=== PATIENT | female | born 1945 | race Caucasian/White ===

== ENCOUNTER 2017-06-21 20:17 | Inpatient (IN) | payer MEDICARE, BC ==
[~2017-06-21] VITALS: Ht 170.2 cm; Wt 108.9 kg
[2017-06-21] MEDS ORDERED: VERA180T7 PO (20:50)
[2017-06-21] MEDS ORDERED: CLON0.1T PO (20:50)
[2017-06-21] MEDS ORDERED: GABA300C PO (20:50)
[2017-06-21] MEDS ORDERED: CYAN10009 PO (20:50)
[2017-06-21] MEDS ORDERED: ASPI-966 PO (20:50)
[2017-06-21] MEDS ORDERED: ATOR40TA PO (20:50)
[2017-06-21] MEDS ORDERED: MAGN400O6 PO (20:50)
[2017-06-21] MEDS ORDERED: LOPE-156 PO (20:50)
[2017-06-21] MEDS ORDERED: META800T85 PO (20:50)
[2017-06-21] MEDS ORDERED: SUMA100T PO (20:50)
[2017-06-21] MEDS ORDERED: GABA-534 PO (20:50)
[2017-06-21] MEDS ORDERED: ACET-2154 PO (20:50)
[2017-06-21] MEDS ORDERED: DIPH25CA83 PO (20:50)
[2017-06-21] MEDS ORDERED: MAGN500C16 PO (20:50)
[2017-06-21] MEDS ORDERED: MAG-55 PO (20:50)
[2017-06-21] MEDS ORDERED: LEVO125T PO (20:50)
[2017-06-21] MEDS ORDERED: FURO-151 PO (20:50)
[2017-06-21] MEDS ORDERED: DEXT30SU17 PO (20:50)
[2017-06-21] MEDS ORDERED: PANT40TA4 PO (20:50)
[2017-06-21] MEDS ORDERED: FENO134C PO (20:50)
[2017-06-21] MEDS ORDERED: METO50TA16 PO (20:50)
[2017-06-21] MEDS ORDERED: IPRATROPIUM BROMIDE 0.5 MG/2.5 ML NEBU NEB ONE (21:15)
[2017-06-21] MEDS ORDERED: ALBUTEROL SULFATE 2.5 MG/3 ML NEBU NEB ONE (21:15)
[2017-06-21] MEDS ORDERED: methylPREDNISolone SOD SUCC 125 MG/2 ML VIAL IV ONE (21:15)
[2017-06-21] MEDS ORDERED: ALBUTEROL SULFATE 2.5 MG/3 ML NEBU ONE (21:28)
[2017-06-21] MEDS ORDERED: IPRATROPIUM BROMIDE 0.5 MG/2.5 ML NEBU ONE (21:29)
[2017-06-21] MEDS ORDERED: methylPREDNISolone SOD SUCC 125 MG/2 ML VIAL ONE (21:35)
[2017-06-21 22:18] LABS: CARBON DIOXIDE 23 mmol/L (21-32); CHLORIDE 98 mmol/L (98-107); CREATININE 1.4 mg/dL (0.6-1.3); GLUCOSE 114 mg/dL (74-106); POTASSIUM 4.2 mmol/L (3.5-5.1); UREA NITROGEN, BLOOD 29 mg/dL (7-18)
[2017-06-21 22:30] VITALS: BP 147/73
[2017-06-21 22:30] LABS: ALANINE AMINOTRANSFERASE 57 U/L (14-59); ALKALINE PHOSPHATASE 52 U/L (50-136); ASPARTATE AMINOTRANSFERASE 49 U/L (15-37); BILIRUBIN,DIRECT 0.1 mg/dL (0.0-0.2); BILIRUBIN,TOTAL 0.3 mg/dL (0.2-1.0); TOTAL PROTEIN, SERUM 7.3 g/dL (6.4-8.2)
[2017-06-21 22:31] LABS: BASOPHILS % (AUTO) 0.2 % (0.0-2.0); EOSINOPHILS % (AUTO) 1.1 % (0.0-7.0); HEMATOCRIT 35.7 % (37-47); HEMOGLOBIN 11.8 G/DL (12.0-16.0); LYMPHOCYTES # (AUTO) 0.8 K/UL (0.8-4.8); LYMPHOCYTES % (AUTO) 16.9 % (20.5-51.5); MEAN CORPUSCULAR HGB CONC 33 g/dL (32.0-37.0); MEAN CORPUSCULAR VOLUME 84.9 FL (81.0-99.0); MONOCYTES # (AUTO) 0.5 K/UL (0.1-1.30); MONOCYTES % (AUTO) 11.8 % (0.0-11.0); NEUTROPHILS # (AUTO) 3.2 K/UL (1.8-8.9); PLATELET COUNT (AUTO) 264 K/UL (150-450); RED BLOOD CELL COUNT(AUTO) 4.21 MIL/UL (4.2-5.4); WHITE BLOOD COUNT (AUTO) 4.5 K/UL (4.0-11.2)
[2017-06-22 00:30] VITALS: BP 129/77
[2017-06-22] MEDS ORDERED: TEMAZEPAM 15 MG CAPSULE PO SCH (01:15)
[2017-06-22] MEDS: LORAZEPAM 2 MG/1 ML VIAL IV PRN ×3 (01:19→16:49)
[2017-06-22] MEDS ORDERED: LORAZEPAM 2 MG/1 ML VIAL ONE (01:32)
[2017-06-22 04:00] VITALS: BP 119/72
[2017-06-22] MEDS ORDERED: SUMATRIPTAN SUCCINATE 50 MG TABLET PO PRN (07:45)
[2017-06-22] MEDS ORDERED: MAGNESIUM HYDROXIDE 30 ML LIQUID UDC PO PRN (07:45)
[2017-06-22] MEDS ORDERED: METAXALONE 800 MG TABLET PO SCH (07:45)
[2017-06-22] MEDS ORDERED: ACETAMINOPHEN 325 MG TABLET PO PRN (07:45)
[2017-06-22] MEDS ORDERED: MAG HYDROX/AL HYDROX/SIMETH 30 ML LIQUID UDC PO PRN (07:45)
[2017-06-22] MEDS ORDERED: CLONIDINE HCL 0.1 MG TABLET PO PRN (07:45)
[2017-06-22] MEDS ORDERED: Medication Not On Formulary EA (Diphenhydramine Hcl (Benadryl) 25 MG) PO SCH (07:45)
[2017-06-22] MEDS ORDERED: DEXTROMETHORPHAN PO SCH (07:45)
[2017-06-22] MEDS ORDERED: LOPERAMIDE HCL 2 MG CAPSULE PO SCH (07:45)
[2017-06-22] MEDS ORDERED: LOPERAMIDE HCL 2 MG CAPSULE PO PRN (08:00)
[2017-06-22] MEDS ORDERED: diphenhydrAMINE 25 MG CAP PO PRN (08:00)
[2017-06-22] MEDS: LEVOTHYROXINE SODIUM 125 MCG TABLET PO SCH (08:01)
[2017-06-22] MEDS: CYANOCOBALAMIN 1,000 MCG TABLET PO SCH (08:57)
[2017-06-22] MEDS: GABAPENTIN 300 MG CAPSULE PO SCH ×2 (08:57→20:18)
[2017-06-22] MEDS: METOPROLOL TARTRATE 50 MG TABLET PO SCH ×2 (08:58→20:18)
[2017-06-22] MEDS ORDERED: Medication Not On Formulary EA (Magnesium Oxide (Magnesium) 500 MG) PO SCH (09:00)
[2017-06-22] MEDS ORDERED: Medication Not On Formulary EA (Fenofibrate,Micronized (Fenofibrate) 134 MG) PO SCH (09:00)
[2017-06-22] MEDS: VERAPAMIL SR 180 MG TABLET.SA PO SCH (09:00)
[2017-06-22] MEDS: methylPREDNISolone SOD SUCC 40 MG/ML VIAL IV SCH ×3 (09:27→22:51)
[2017-06-22] MEDS: FENOFIBRATE NANOCRYSTALLIZED 145 MG TABLET PO SCH (09:27)
[2017-06-22] MEDS: GUAIFENESIN/DEXTROMETHORPHAN 5 ML UDC PO PRN ×4 (09:27→22:56)
[2017-06-22] MEDS ORDERED: LEVOFLOXACIN 500 MG/D5W 500 MG in PREMIXED 1 EACH IV SCH (10:00)
[2017-06-22 10:08] VITALS: BP 119/60
[2017-06-22] MEDS ORDERED: FUROSEMIDE 40 MG TABLET PO ONE (10:15)
[2017-06-22] MEDS: ASPIRIN/ACETAMINOPHEN/CAFFEINE TABLET PO PRN (10:16)
[2017-06-22] MEDS: IPRATROPIUM BROMIDE 0.5 MG/2.5 ML NEBU NEB PRN (11:46)
[2017-06-22] MEDS: ALBUTEROL SULFATE 1.25 MG/3 ML NEBU NEB PRN (11:46)
[2017-06-22] MEDS ORDERED: METAXALONE 800 MG TABLET PO PRN (15:15)
[2017-06-22 16:00] VITALS: BP 135/64
[2017-06-22] MEDS: HYDROCODONE/APAP 5-325MG TABLET PO PRN (17:53)
[2017-06-22 20:00] VITALS: BP 128/63
[2017-06-22] MEDS: PANTOPRAZOLE SODIUM 40 MG TABLET.DR PO SCH (20:17)
[2017-06-22] MEDS: ATORVASTATIN 40 MG TABLET PO SCH (20:17)
[2017-06-22] MEDS: MAGNESIUM OXIDE 400 MG TABLET PO SCH (20:17)
[2017-06-22] MEDS: TEMAZEPAM 7.5 MG CAPSULE PO PRN (22:51)
[2017-06-23] MEDS: TEMAZEPAM 7.5 MG CAPSULE PO PRN ×2 (01:30→22:42)
[2017-06-23] MEDS: ALBUTEROL SULFATE 1.25 MG/3 ML NEBU NEB PRN ×3 (01:37→23:26)
[2017-06-23] MEDS: IPRATROPIUM BROMIDE 0.5 MG/2.5 ML NEBU NEB PRN ×3 (01:37→23:26)
[2017-06-23] MEDS: methylPREDNISolone SOD SUCC 40 MG/ML VIAL IV SCH ×3 (05:54→21:29)
[2017-06-23] MEDS: GUAIFENESIN/DEXTROMETHORPHAN 5 ML UDC PO PRN (05:54)
[2017-06-23 06:00] VITALS: BP 149/60
[2017-06-23] MEDS: LEVOTHYROXINE SODIUM 125 MCG TABLET PO SCH (06:02)
[2017-06-23] MEDS ORDERED: METAXALONE 800 MG TABLET PO PRN (07:45)
[2017-06-23 07:55] LABS: CARBON DIOXIDE 24 mmol/L (21-32); CHLORIDE 99 mmol/L (98-107); CREATININE 1.7 mg/dL (0.6-1.3); GLUCOSE 128 mg/dL (74-106); POTASSIUM 5.4 mmol/L (3.5-5.1); UREA NITROGEN, BLOOD 43 mg/dL (7-18)
[2017-06-23] MEDS ORDERED: FUROSEMIDE 40 MG TABLET PO SCH (09:00)
[2017-06-23] MEDS: VERAPAMIL SR 180 MG TABLET.SA PO SCH (09:08)
[2017-06-23] MEDS: CYANOCOBALAMIN 1,000 MCG TABLET PO SCH (09:12)
[2017-06-23] MEDS: METOPROLOL TARTRATE 50 MG TABLET PO SCH ×2 (09:14→20:00)
[2017-06-23] MEDS: GABAPENTIN 300 MG CAPSULE PO SCH ×2 (09:14→20:00)
[2017-06-23] MEDS: FENOFIBRATE NANOCRYSTALLIZED 145 MG TABLET PO SCH (09:14)
[2017-06-23 09:31] LABS: BILIRUBIN,DIRECT 0.1 mg/dL (0.0-0.2); BILIRUBIN,TOTAL 0.4 mg/dL (0.2-1.0); TOTAL PROTEIN, SERUM 7.2 g/dL (6.4-8.2)
[2017-06-23 09:37] LABS: BASOPHILS % (AUTO) 0.1 % (0.0-2.0); HEMOGLOBIN 11.8 g/dL (10.9-14.3); LYMPHOCYTES # (AUTO) 0.9 K/uL (20.0-40.0); LYMPHOCYTES % (AUTO) 7.7 % (20.5-51.5); MEAN CORPUSCULAR HEMOGLOBIN 28.7 uug (24.7-32.8); MEAN CORPUSCULAR HGB CONC 34 g/dL (32.3-35.6); MEAN CORPUSCULAR VOLUME 85.2 fL (75.5-95.3); MONOCYTES # (AUTO) 0.6 K/uL (2.0-10.0); MONOCYTES % (AUTO) 5.7 % (0.0-11.0); NEUTROPHILS # (AUTO) 9.5 K/uL (1.8-8.9); NEUTROPHILS % (AUTO) 86.5 % (38.5-71.5); PLATELET COUNT (AUTO) 267 K/uL (179-408); RED BLOOD CELL COUNT(AUTO) 4.11 MIL/uL (3.63-4.92)
[2017-06-23 09:45] LABS: MAGNESIUM 2.1 mg/dL (1.8-2.4); PHOSPHOROUS 3.2 mg/dL (2.5-4.9)
[2017-06-23 11:20] VITALS: BP 113/48
[2017-06-23] MEDS: LORAZEPAM 2 MG/1 ML VIAL IV PRN (11:21)
[2017-06-23 15:57] VITALS: BP 102/55
[2017-06-23] MEDS: HYDROCODONE/APAP 5-325MG TABLET PO PRN (16:04)
[2017-06-23] MEDS ORDERED: LEVOFLOXACIN 750MG/D5W 750 MG in PREMIXED 1 EACH IV SCH (18:00)
[2017-06-23 20:00] VITALS: BP 155/75
[2017-06-23] MEDS: ATORVASTATIN 40 MG TABLET PO SCH (20:00)
[2017-06-23] MEDS: MAGNESIUM OXIDE 400 MG TABLET PO SCH (20:00)
[2017-06-23] MEDS: PANTOPRAZOLE SODIUM 40 MG TABLET.DR PO SCH (20:00)
[2017-06-24 01:40] VITALS: BP 125/64
[2017-06-24] MEDS: ASPIRIN/ACETAMINOPHEN/CAFFEINE TABLET PO PRN ×2 (01:45→09:46)
[2017-06-24] MEDS: methylPREDNISolone SOD SUCC 40 MG/ML VIAL IV SCH (06:00)
[2017-06-24] MEDS: LEVOTHYROXINE SODIUM 125 MCG TABLET PO SCH (06:00)
[2017-06-24 06:30] VITALS: BP 134/59
[2017-06-24 06:31] LABS: ALANINE AMINOTRANSFERASE 44 U/L (14-59); ALKALINE PHOSPHATASE 42 U/L (50-136); ASPARTATE AMINOTRANSFERASE 26 U/L (15-37); BILIRUBIN,TOTAL 0.2 mg/dL (0.2-1.0); CARBON DIOXIDE 24 mmol/L (21-32); CHLORIDE 99 mmol/L (98-107); CREATININE 1.8 mg/dL (0.6-1.3); GLUCOSE 127 mg/dL (74-106); MAGNESIUM 2.5 mg/dL (1.8-2.4); PHOSPHOROUS 3.8 mg/dL (2.5-4.9); POTASSIUM 5.3 mmol/L (3.5-5.1); TOTAL PROTEIN, SERUM 7.1 g/dL (6.4-8.2); UREA NITROGEN, BLOOD 55 mg/dL (7-18)
[2017-06-24 06:48] LABS: BASOPHILS % (AUTO) 0.1 % (0.0-2.0); HEMATOCRIT 34.6 % (31.2-41.9); HEMOGLOBIN 11.7 g/dL (10.9-14.3); LYMPHOCYTES # (AUTO) 1.2 K/uL (20.0-40.0); LYMPHOCYTES % (AUTO) 9.8 % (20.5-51.5); MEAN CORPUSCULAR HEMOGLOBIN 28.5 uug (24.7-32.8); MEAN CORPUSCULAR HGB CONC 34 g/dL (32.3-35.6); MEAN CORPUSCULAR VOLUME 84.5 fL (75.5-95.3); MONOCYTES # (AUTO) 0.6 K/uL (2.0-10.0); MONOCYTES % (AUTO) 5.2 % (0.0-11.0); NEUTROPHILS % (AUTO) 84.9 % (38.5-71.5); PLATELET COUNT (AUTO) 297 K/uL (179-408); WHITE BLOOD COUNT (AUTO) 11.8 K/uL (3.8-11.8)
[2017-06-24] MEDS ORDERED: TEMA7.5C PO (08:02)
[2017-06-24] MEDS ORDERED: FURO40TA5 PO (08:02)
[2017-06-24] MEDS: METOPROLOL TARTRATE 50 MG TABLET PO SCH (08:29)
[2017-06-24 08:30] VITALS: BP 140/75
[2017-06-24] MEDS: FENOFIBRATE NANOCRYSTALLIZED 145 MG TABLET PO SCH (08:30)
[2017-06-24] MEDS: GABAPENTIN 300 MG CAPSULE PO SCH (08:30)
[2017-06-24] MEDS: CYANOCOBALAMIN 1,000 MCG TABLET PO SCH (08:31)
[2017-06-24] MEDS: IPRATROPIUM BROMIDE 0.5 MG/2.5 ML NEBU NEB PRN (08:35)
[2017-06-24] MEDS: ALBUTEROL SULFATE 1.25 MG/3 ML NEBU NEB PRN (08:35)
[2017-06-24 08:55] VITALS: BP 140/75
[2017-06-24] MEDS: VERAPAMIL SR 180 MG TABLET.SA PO SCH (08:55)
[2017-06-24] MEDS ORDERED: FUROSEMIDE 40 MG TABLET PO SCH (09:00)
[2017-06-24] MEDS ORDERED: INFLUENZA VACCINE 2017-2018 0.5 ML DISP.SYRIN IM ONE (10:30)
[2017-06-25 06:06] LABS: HEPATITIS B SURFACE AB Non Reactive (.); HEPATITIS B SURFACE AG Negative (Negative)
== END 2017-06-24 11:30 | DRG 190 ==
LOC: ER 20:20 → TELE 23:15 → MED 06-22 13:25
PROVIDERS: ADMIT Internal Medicine; ATTEND Internal Medicine
DX: J44.1 Chronic obstructive pulmonary disease with (acute) exacerbation (principal); N17.0 Acute kidney failure with tubular necrosis; E03.9 Hypothyroidism, unspecified; I10 Essential (primary) hypertension; E78.5 Hyperlipidemia, unspecified; F41.9 Anxiety disorder, unspecified; K21.9 Gastro-esophageal reflux disease without esophagitis; Z79.899 Other long term (current) drug therapy; R79.89 Other specified abnormal findings of blood chemistry; Z22.322 Carrier or suspected carrier of Methicillin resistant Staphylococcus aureus
CPT/HCPCS: 36415; 70030-TC; 71010; 76700; 83605; 83735; 84100; 85025; 86706; 86803; 87040; 87340; 90686; 93005; 94640; 97116; 97530; A4663; J1956; J2060; J2920; J2930; J3590; J7040; J8499

== ENCOUNTER 2017-07-27 18:20 | Inpatient (IN) | payer MEDICARE, BC ==
[~2017-07-27] VITALS: Ht 172.7 cm; Wt 79.4 kg
[~2017-07-27 18:20] MED LIST: ACET-2154 PO; ASPI-966 PO; ATOR40TA PO; CLON0.1T PO; CYAN10009 PO; DEXT30SU17 PO; DIPH25CA83 PO; FENO134C PO; FURO-151 PO; FURO40TA5 PO; GABA-534 PO; GABA300C PO; LEVO125T PO; LOPE-156 PO; MAG-55 PO; MAGN400O6 PO; MAGN500C16 PO; META800T85 PO; METO50TA16 PO; PANT40TA4 PO; SUMA100T PO; TEMA7.5C PO; VERA180T7 PO
--- NOTE | 2017-07-27 18:30 | NUR ---
BIB [facility] WITH C/O SOB, THERE ARE NO ER BEDS AVAILABLE AT THIS TIME, PT IS IN HALLWAY WITH EMS.
--- NOTE | 2017-07-27 18:46 | NUR ---
Pt placed in [facility] in [facility], there are no ER beds available at this time.
[2017-07-27] MEDS ORDERED: IPRATROPIUM BROMIDE 0.5 MG/2.5 ML NEBU NEB ONE (19:00)
[2017-07-27] MEDS ORDERED: methylPREDNISolone SOD SUCC 125 MG/2 ML VIAL IV ONE (19:00)
[2017-07-27] MEDS ORDERED: ALBUTEROL SULFATE 2.5 MG/3 ML NEBU NEB ONE (19:00)
[2017-07-27 19:29] LABS: BASOPHILS % (AUTO) 0.3 % (0.0-2.0); EOSINOPHILS % (AUTO) 0.7 % (0.0-7.0); HEMOGLOBIN 10.3 g/dL (10.9-14.3); LYMPHOCYTES # (AUTO) 1.2 K/uL (20.0-40.0); LYMPHOCYTES % (AUTO) 26.9 % (20.5-51.5); MEAN CORPUSCULAR HEMOGLOBIN 28.8 uug (24.7-32.8); MEAN CORPUSCULAR HGB CONC 33 g/dL (32.3-35.6); MEAN CORPUSCULAR VOLUME 86.5 fL (75.5-95.3); MONOCYTES # (AUTO) 0.5 K/uL (2.0-10.0); MONOCYTES % (AUTO) 10.7 % (0.0-11.0); NEUTROPHILS # (AUTO) 2.8 K/uL (1.8-8.9); NEUTROPHILS % (AUTO) 61.4 % (38.5-71.5); PLATELET COUNT (AUTO) 280 K/uL (179-408); RED BLOOD CELL COUNT(AUTO) 3.58 MIL/uL (3.63-4.92); WHITE BLOOD COUNT (AUTO) 4.6 K/uL (3.8-11.8)
[2017-07-27 19:32] LABS: CARBON DIOXIDE 22 mmol/L (21-32); CHLORIDE 101 mmol/L (98-107); CREATININE 2.5 mg/dL (0.6-1.3); GLUCOSE 140 mg/dL (74-106); POTASSIUM 4.1 mmol/L (3.5-5.1); UREA NITROGEN, BLOOD 53 mg/dL (7-18)
[2017-07-27 19:44] LABS: ALANINE AMINOTRANSFERASE 34 U/L (14-59); ALKALINE PHOSPHATASE 36 U/L (50-136); ASPARTATE AMINOTRANSFERASE 22 U/L (15-37); BILIRUBIN,DIRECT 0.1 mg/dL (0.0-0.2); BILIRUBIN,TOTAL 0.3 mg/dL (0.2-1.0); TOTAL PROTEIN, SERUM 6.8 g/dL (6.4-8.2)
[2017-07-27 19:45] LABS: ABG BASE EXCESS -6.6 mmol/L; ABG HCO3 17.6 mmol/L; ABG PH 7.373 (7.350-7.450); ABG SITE RIGHT RADIAL; ABG TOTAL HEMOGLOBIN 10.3 G/dL (12.0-16.0); COHb 0.2 % (0.5-1.5); MetHb 0.3 % (0.0-1.5); O2Hb 94.3 % (94.0-97.0); VENT MODE Room Air
[2017-07-27] MEDS ORDERED: ALBUTEROL SULFATE 2.5 MG/3 ML NEBU ONE (19:45)
[2017-07-27] MEDS ORDERED: IPRATROPIUM BROMIDE 0.5 MG/2.5 ML NEBU ONE (19:46)
[2017-07-27] MEDS ORDERED: PIPERACILLIN/TAZO 0.75 G in IV DEXTROSE 5% 50 ML IV PRN (20:15)
[2017-07-27] MEDS ORDERED: LEVOFLOXACIN 250MG /D5W 250 MG in PREMIXED 1 EACH IV ONE (20:15)
[2017-07-27] MEDS ORDERED: MONT10TA22 PO (21:47)
[2017-07-27] MEDS ORDERED: ALBU8.5H8 INH (21:47)
[2017-07-27] MEDS ORDERED: DEXT30SU17 PO (21:47)
[2017-07-27] MEDS ORDERED: LORA10TA7 PO (21:47)
[2017-07-27] MEDS ORDERED: VALS160T2 PO (21:47)
[2017-07-27] MEDS ORDERED: MIRT30TA7 PO (21:47)
[2017-07-27] MEDS ORDERED: ALBU2.5V38 IH (21:47)
[2017-07-27] MEDS ORDERED: CHOL500050 PO (21:47)
[2017-07-27] MEDS ORDERED: ALBU8HFA4 IH (21:47)
[2017-07-27] MEDS ORDERED: OMEG1CAP PO (21:47)
[2017-07-27] MEDS ORDERED: FENO135C PO (21:47)
[2017-07-27] MEDS ORDERED: ASPI-966 PO (21:47)
[2017-07-27] MEDS ORDERED: SPIR25TA4 PO (21:47)
[2017-07-27] MEDS ORDERED: ALEN70TA3 PO (21:47)
[2017-07-27] MEDS ORDERED: LORA0.5T PO (21:47)
[2017-07-27] MEDS ORDERED: BENZ-13 PO (21:47)
[2017-07-27] MEDS ORDERED: UBID100C13 PO (21:47)
[2017-07-27] MEDS ORDERED: FLUT1DIS28 INH (21:47)
--- NOTE | 2017-07-27 22:25 | NUR ---
LABS DRAWN EARLIE, RESP TX GIVEN, PRESENTLY RECEIVING LEVAQUIN IVPB. PO2=97% ON RA, MONITOR SHOWS SINUS TACH AT 110.
[2017-07-27] MEDS ORDERED: LEVOFLOXACIN 250MG /D5W 50 ML IV ONE (22:29)
[2017-07-27] MEDS ORDERED: PIPERACILLIN/TAZOBACTAM/D5W 50 ML ONE (22:29)
[2017-07-27] MEDS ORDERED: LORAZEPAM 0.5 MG TABLET PO ONE (22:30)
[2017-07-27] MEDS ORDERED: methylPREDNISolone SOD SUCC 125 MG/2 ML VIAL ONE (22:34)
[2017-07-27] MEDS ORDERED: LORAZEPAM 0.5 MG TABLET ONE (22:58)
--- NOTE | 2017-07-28 00:53 | NUR ---
PT SLEEPING EYES CLOSED.
--- NOTE | 2017-07-28 07:16 | NUR ---
PT SLEEPING, SBAR REPORT TO SUNG BOYER.
[2017-07-28] MEDS ORDERED: ALBUTEROL SULFATE 2.5 MG/3 ML NEBU NEB ONE (07:30)
[2017-07-28] MEDS ORDERED: IPRATROPIUM BROMIDE 0.5 MG/2.5 ML NEBU NEB ONE (07:30)
[2017-07-28] MEDS ORDERED: ACETAMINOPHEN 325 MG TABLET PO ONE (07:30)
[2017-07-28] MEDS ORDERED: ONDANSETRON 4 MG/2 ML VIAL IV PRN (07:30)
[2017-07-28 08:04] LABS: BASOPHILS % (AUTO) 0.3 % (0.0-2.0); EOSINOPHILS % (AUTO) 0.1 % (0.0-7.0); HEMATOCRIT 31.2 % (31.2-41.9); HEMOGLOBIN 10.4 g/dL (10.9-14.3); LYMPHOCYTES # (AUTO) 0.4 K/uL (20.0-40.0); LYMPHOCYTES % (AUTO) 12.5 % (20.5-51.5); MEAN CORPUSCULAR HEMOGLOBIN 28.8 uug (24.7-32.8); MEAN CORPUSCULAR HGB CONC 33 g/dL (32.3-35.6); MEAN CORPUSCULAR VOLUME 86.7 fL (75.5-95.3); MONOCYTES # (AUTO) 0.1 K/uL (2.0-10.0); MONOCYTES % (AUTO) 2.3 % (0.0-11.0); NEUTROPHILS % (AUTO) 84.8 % (38.5-71.5); PLATELET COUNT (AUTO) 264 K/uL (179-408); WHITE BLOOD COUNT (AUTO) 3.5 K/uL (3.8-11.8)
[2017-07-28] MEDS ORDERED: IPRATROPIUM BROMIDE 0.5 MG/2.5 ML NEBU ONE ×2 (08:33→10:53)
[2017-07-28] MEDS ORDERED: ALBUTEROL SULFATE 2.5 MG/3 ML NEBU ONE ×3 (08:33→15:47)
[2017-07-28 08:44] LABS: CARBON DIOXIDE 17 mmol/L (21-32); CHLORIDE 102 mmol/L (98-107); CREATININE 3.2 mg/dL (0.6-1.3); GLUCOSE 186 mg/dL (74-106); POTASSIUM 5.2 mmol/L (3.5-5.1); UREA NITROGEN, BLOOD 64 mg/dL (7-18)
[2017-07-28] MEDS ORDERED: LEVOFLOXACIN 500 MG/D5W 100ML PIGGYBACK IV SCH (09:00)
--- NOTE | 2017-07-28 09:51 | NUR ---
Patient is on hospital bed & is eating breakfast with good appetite, still waiting for telemetry transfer at this time
[2017-07-28] MEDS ORDERED: ACETAMINOPHEN 325 MG TABLET ONE (09:53)
[2017-07-28] MEDS ORDERED: LEVOFLOXACIN 500 MG/D5W 100 ML ONE (09:53)
[2017-07-28] MEDS ORDERED: LORAZEPAM 2 MG/1 ML VIAL IV ONE (10:15)
[2017-07-28] MEDS ORDERED: ALBUTEROL SULFATE 2.5 MG/3 ML NEBU IH SCH (10:30)
[2017-07-28] MEDS ORDERED: ALBUTEROL SULFATE 8 GM HFA.AER.AD IH PRN (10:30)
[2017-07-28] MEDS ORDERED: DEXTROMETHORPHAN POLISTIREX PO SCH (10:30)
[2017-07-28] MEDS ORDERED: ALBUTEROL SULFATE 8 GM HFA.AER.AD INH PRN (10:30)
[2017-07-28] MEDS ORDERED: ALENDRONATE SODIUM 70 MG TABLET PO SCH (10:30)
[2017-07-28] MEDS ORDERED: METAXALONE 800 MG TABLET PO PRN (10:30)
[2017-07-28] MEDS ORDERED: ATORVASTATIN 40 MG TABLET PO SCH (10:30)
[2017-07-28] MEDS ORDERED: LORAZEPAM 2 MG/1 ML VIAL ONE (10:31)
[2017-07-28] MEDS: LORAZEPAM 0.5 MG TABLET PO SCH (10:36)
--- NOTE | 2017-07-28 10:37 | NUR ---
PO ativan -not given. Patient had 1mg IV ativan earlier.
[2017-07-28] MEDS: CLONIDINE HCL 0.1 MG TABLET PO SCH (10:52)
[2017-07-28] MEDS: OMEGA-3 FATTY ACIDS/FISH OIL CAPSULE PO SCH (10:53)
[2017-07-28] MEDS: MONTELUKAST SODIUM 10 MG TABLET PO SCH (10:53)
[2017-07-28] MEDS: VERAPAMIL SR 180 MG TABLET.SA PO SCH (10:54)
[2017-07-28] MEDS: BENZONATATE 100 MG CAPSULE PO PRN (10:54)
--- NOTE | 2017-07-28 10:58 | NUR ---
Some po meds are still not available in ER pyxis, pharmacy was called.
[2017-07-28] MEDS ORDERED: BENZONATATE 100 MG CAPSULE ONE (11:03)
[2017-07-28] MEDS ORDERED: LORATADINE 10 MG TABLET ONE (11:03)
[2017-07-28] MEDS ORDERED: ALENDRONATE SODIUM 70 MG TABLET PO ONE (11:03)
[2017-07-28] MEDS ORDERED: CLONIDINE HCL 0.1 MG TABLET ONE (11:04)
[2017-07-28] MEDS ORDERED: MONTELUKAST SODIUM 10 MG TABLET ONE (11:04)
[2017-07-28] MEDS ORDERED: METOPROLOL TARTRATE 50 MG TABLET ONE (11:05)
[2017-07-28] MEDS ORDERED: VERAPAMIL SR 180 MG TABLET.SA PO ONE (11:05)
[2017-07-28] MEDS: ALBUTEROL SULFATE 2.5 MG/3 ML NEBU IH SCH ×4 (11:06→23:20)
[2017-07-28] MEDS: CEFTRIAXONE 1 G in IV DEXTROSE 5% 50 ML IV SCH (11:11)
[2017-07-28] MEDS ORDERED: AZITHROMYCIN 500 MG VIAL IV ONE (11:18)
[2017-07-28] MEDS ORDERED: CEFTRIAXONE 1 G VIAL ONE (11:18)
[2017-07-28] MEDS: AZITHROMYCIN IV 500 MG in IV DEXTROSE 5% 250 ML IV SCH (11:22)
[2017-07-28] MEDS: LEVOTHYROXINE SODIUM 125 MCG TABLET PO SCH (11:26)
--- NOTE | 2017-07-28 11:34 | NUR ---
Patient is resting comfortably in bed while using her personal electronic device. No acute change in condition seen.
[2017-07-28] MEDS ORDERED: LEVOTHYROXINE SODIUM 137 MCG TABLET ONE (11:42)
[2017-07-28] MEDS: ONDANSETRON 4 MG/2 ML VIAL IV PRN (14:10)
[2017-07-28] MEDS ORDERED: MORPHINE SULFATE 2 MG/1 ML DISP.SYRIN IV ONE (14:15)
[2017-07-28] MEDS ORDERED: MORPHINE SULFATE 4 MG/1 ML DISP.SYRIN ONE (14:25)
[2017-07-28] MEDS ORDERED: ONDANSETRON 4 MG/2 ML VIAL ONE (14:25)
--- NOTE | 2017-07-28 16:02 | NUR ---
Patient is getting anxious again about being in ER. Comfort and safety measures maintained. Listening ear provided.
[2017-07-28] MEDS: diphenhydrAMINE 50 MG/1 ML VIAL IV PRN (16:19)
[2017-07-28] MEDS: METHOCARBAMOL 500 MG TABLET PO PRN (16:19)
--- NOTE | 2017-07-28 16:21 | NUR ---
Room 210 was given@1620 but there is still a patient in the room per embossing unit operator Mary Jane.
[2017-07-28] MEDS ORDERED: METHOCARBAMOL 500 MG TABLET ONE (16:31)
[2017-07-28] MEDS ORDERED: diphenhydrAMINE 50 MG/1 ML VIAL ONE (16:31)
--- NOTE | 2017-07-28 16:43 | NUR ---
Room 215 was given by 2nd floor charge weigher Rohoni. Nurse [place] will call ER as soon as possible.
[2017-07-28] MEDS ORDERED: METOPROLOL TARTRATE 50 MG TABLET PO SCH (17:00)
[2017-07-28] MEDS ORDERED: FLUTICASONE/SALMETEROL 250/50 INHALER INH SCH (17:00)
--- NOTE | 2017-07-28 18:06 | NUR ---
received from ER per bed awake alert and oriented with c/o shortness of breath and wheezing, states shortness of breath better, 02 at 2l/nc with sat of 96%, tele applied, SR 90's, routine admission care done, initial assessment done, call light within reach, saline lock on left hand intact and patent. oriented to bed controls and call light -verbalized understanding, endorsed to next shift
[2017-07-28 18:23] VITALS: BP 104/72
[2017-07-28 20:00] VITALS: BP 108/58
[2017-07-28] MEDS: ZOLPIDEM 5 MG TABLET PO PRN (20:15)
[2017-07-28] MEDS: ACETAMINOPHEN 325 MG TABLET PO PRN (20:15)
[2017-07-28] MEDS: ATORVASTATIN 40 MG TABLET PO SCH (21:00)
[2017-07-28] MEDS ORDERED: Medication Not On Formulary EA (Mirtazapine 30 MG) PO SCH (21:00)
[2017-07-28] MEDS: MIRTAZAPINE 15 MG TABLET PO SCH (21:00)
[2017-07-28] MEDS ORDERED: GABAPENTIN 300 MG CAPSULE PO SCH (21:00)
[2017-07-28] MEDS: HEPARIN SODIUM,PORCINE 5,000 UNITS/ML VIAL SQ SCH (21:00)
[2017-07-28] MEDS: METOPROLOL TARTRATE 50 MG TABLET PO SCH (21:00)
[2017-07-29] VITALS: BP 109/53
[2017-07-29 02:02] LABS: *BILIRUBIN,URIN NEGATIVE (NEGATIVE); *BLOOD, URINE NEGATIVE (NEGATIVE); *CLARITY,URINE CLEAR (CLEAR); *COLOR,URINE YELLOW (YELLOW); *KETONES,URINE NEGATIVE (NEGATIVE); *PROTEIN,URINE NEGATIVE (NEGATIVE); *UROBILINOGEN,URINE 0.2 E.U./dl (NORMAL); LEUKOCYTE ESTERASE ,URINE NEGATIVE (NEGATIVE); NITRITE, URINE NEGATIVE (NEGATIVE); PH,URINE 5.5 (5.0-8.0); UGLUCOSE NEGATIVE (NEGATIVE)
[2017-07-29 02:10] LABS: *CREATININE,URINE 105.2 mg/dL (30-125); *URINE TOTAL PROTEIN RANDOM 20.5 mg/dL (<150/24HR)
[2017-07-29 02:11] LABS: BACTERIA,URINE NONE SEEN /HPF (NONE SEEN); RBC,URINE NONE SEEN /HPF (0-3); SQUAMOUS EPITHELIAL CELL,UR FEW /HPF (NONE SEEN); WBC,URINE 0-3 /HPF (0-3)
[2017-07-29] MEDS: BENZONATATE 100 MG CAPSULE PO PRN (02:55)
[2017-07-29] MEDS: ACETAMINOPHEN 325 MG TABLET PO PRN (02:55)
[2017-07-29] MEDS: ALBUTEROL SULFATE 2.5 MG/3 ML NEBU IH SCH ×6 (03:08→22:34)
[2017-07-29 04:00] VITALS: BP 114/65
[2017-07-29] MEDS: LORAZEPAM 0.5 MG TABLET PO SCH (06:41)
[2017-07-29] MEDS: LEVOTHYROXINE SODIUM 125 MCG TABLET PO SCH (06:43)
[2017-07-29 07:57] LABS: BASOPHILS % (AUTO) 0.1 % (0.0-2.0); HEMATOCRIT 31.9 % (31.2-41.9); HEMOGLOBIN 10.7 g/dL (10.9-14.3); LYMPHOCYTES % (AUTO) 17.5 % (20.5-51.5); MEAN CORPUSCULAR HGB CONC 34 g/dL (32.3-35.6); MEAN CORPUSCULAR VOLUME 86.1 fL (75.5-95.3); MONOCYTES # (AUTO) 0.5 K/uL (2.0-10.0); NEUTROPHILS % (AUTO) 73.4 % (38.5-71.5); PLATELET COUNT (AUTO) 283 K/uL (179-408); WHITE BLOOD COUNT (AUTO) 5.5 K/uL (3.8-11.8)
[2017-07-29] MEDS: FLUTICASONE/VILANTEROL 1 EACH BLST.W.DEV INH SCH (08:36)
[2017-07-29] MEDS: CLONIDINE HCL 0.1 MG TABLET PO SCH ×2 (08:37→16:45)
[2017-07-29] MEDS: FENOFIBRATE NANOCRYSTALLIZED 145 MG TABLET PO SCH (08:37)
[2017-07-29] MEDS: LORATADINE 10 MG TABLET PO SCH (08:38)
[2017-07-29] MEDS: GABAPENTIN 300 MG CAPSULE PO SCH (08:38)
[2017-07-29] MEDS: METOPROLOL TARTRATE 50 MG TABLET PO SCH ×2 (08:38→20:53)
[2017-07-29] MEDS: CYANOCOBALAMIN 1,000 MCG TABLET PO SCH (08:38)
[2017-07-29] MEDS: HEPARIN SODIUM,PORCINE 5,000 UNITS/ML VIAL SQ SCH ×2 (08:40→20:58)
[2017-07-29] MEDS: GUAIFENESIN/CODEINE 5 ML LIQUID UDC PO PRN (08:52)
[2017-07-29] MEDS: methylPREDNISolone SOD SUCC 40 MG/ML VIAL IV SCH ×2 (08:52→22:08)
[2017-07-29] MEDS ORDERED: LEVOTHYROXINE SODIUM 125 MCG TABLET PO SCH (09:00)
[2017-07-29] MEDS ORDERED: Medication Not On Formulary EA (Ubidecarenone (Coq-10) 200 MG) PO SCH (09:00)
[2017-07-29] MEDS ORDERED: FENOFIBRIC ACID 135 MG PO SCH (09:00)
[2017-07-29] MEDS ORDERED: LORATADINE 10 MG TABLET PO SCH (09:00)
[2017-07-29 10:07] LABS: ALANINE AMINOTRANSFERASE 32 U/L (14-59); ALKALINE PHOSPHATASE 33 U/L (50-136); ASPARTATE AMINOTRANSFERASE 23 U/L (15-37); BILIRUBIN,TOTAL 0.3 mg/dL (0.2-1.0); CARBON DIOXIDE 24 mmol/L (21-32); CREATINE KINASE, TOTAL 359 U/L (26-192); CREATININE 2.1 mg/dL (0.6-1.3); GLUCOSE 107 mg/dL (74-106); MAGNESIUM 2.3 mg/dL (1.8-2.4); PHOSPHOROUS 3.6 mg/dL (2.5-4.9); TOTAL PROTEIN, SERUM 7.1 g/dL (6.4-8.2); UREA NITROGEN, BLOOD 62 mg/dL (7-18)
[2017-07-29] MEDS ORDERED: ALENDRONATE SODIUM 70 MG TABLET PO SCH (10:32)
[2017-07-29 11:01] VITALS: BP 99/55
[2017-07-29 11:17] LABS: CHLORIDE 105 mmol/L (98-107); POTASSIUM 5.2 mmol/L (3.5-5.1)
[2017-07-29] MEDS: CEFTRIAXONE 1 G in IV DEXTROSE 5% 50 ML IV SCH (11:43)
[2017-07-29] MEDS: AZITHROMYCIN IV 500 MG in IV DEXTROSE 5% 250 ML IV SCH (11:43)
[2017-07-29] MEDS: IV NS 1000 ML 1,000 ML IV PRN (11:44)
[2017-07-29] MEDS: diphenhydrAMINE 50 MG/1 ML VIAL IV PRN (13:38)
[2017-07-29] MEDS ORDERED: LORAZEPAM 0.5 MG TABLET PO PRN (14:45)
[2017-07-29 15:13] VITALS: BP 143/77
--- NOTE | 2017-07-29 19:00 | NUR ---
PATIENT HAVE BEEN IN BED ALERT, DURING THE DAY PATIENT BECAME EXTREMELY ANXIOUS AND NERVOUS. MD. WILLIS ORDERED ATIVAN TO HELP HER RELAX, BUT ACCORDING TO HER BLASTING ENTRYMAN [place], PATIENT IS ADDICTED TO ATIVAN AND SHE VAN HAVE IT, ATIVAN MEDICATION WERE DISCONTINUED PER MD. DOTSON. PATIENT CONTINUE BEING ANXIOUS AND SHAKY, MEDICATIONS WERE ADMINISTERED ORDERED, BUT THERE WERE NOT EFFECTIVE. BREATHING TX WERE GIVEN DURING MY SHIFT BY RT, SAFETY AND COMFORT PROVIDED ORDERED BY STAFF. REPORT WAS GIVEN ARLENE CHOWDHURY RN.
[2017-07-29 20:00] VITALS: BP 125/76
--- NOTE | 2017-07-29 20:05 | NUR ---
RECEIVED SHIFT REPORT FROM DAY SHIFT NURSE. PATIENT IS A/OX4, VERY ANXIOUS, REQUIRES A LOT OF ATTENTION. NO S/S OF DISTRESS, STABLE CONDITION, VSS. PATIENT HAS TREMORS, PAIN IN THE HANDS VERBALIZED BY PATIENT. PAIN MANAGEMENT WILL BE PROVIDED. BED IN LOCKED/LOW POSITION, SIDE RAILS UP X2, BED ALARM ON, CALL LIGHT WITHIN REACH. SAFETY/ COMFORT WILL BE PROVIDED.
[2017-07-29] MEDS: ONDANSETRON 4 MG/2 ML VIAL IV PRN (20:51)
[2017-07-29] MEDS: ZOLPIDEM 5 MG TABLET PO PRN (20:51)
[2017-07-29] MEDS: ATORVASTATIN 40 MG TABLET PO SCH (20:52)
[2017-07-29] MEDS: MIRTAZAPINE 15 MG TABLET PO SCH (20:53)
[2017-07-29] MEDS ORDERED: methylPREDNISolone SOD SUCC 40 MG/ML VIAL ONE (22:21)
--- NOTE | 2017-07-29 22:45 | NUR ---
Received patient from 2nd floor via wheelchair. Pt is now resting comfortably in bed. AAO x4. Vital signs stable. No acute distress noted. No c/o pain or discomfort. Noted unproductive cough. Oriented patient to new room and equipment. Safety measures maintained. Call light and personal belongings within reach. Will continue to monitor.
[2017-07-30] MEDS: ACETAMINOPHEN 325 MG TABLET PO PRN (00:13)
[2017-07-30] MEDS: ALBUTEROL SULFATE 2.5 MG/3 ML NEBU IH SCH ×6 (02:51→23:30)
[2017-07-30] MEDS: GUAIFENESIN/CODEINE 5 ML LIQUID UDC PO PRN ×3 (03:46→20:36)
[2017-07-30] MEDS: BENZONATATE 100 MG CAPSULE PO PRN (04:12)
--- NOTE | 2017-07-30 05:27 | NUR ---
Pt slept intermittently at night. Pt has been needy and emotional t/o the night complaining about her cough. Interventions followed and done. Meds and breathing treatment given but pt seems to cough more loudly once left alone and kept calling nurses back. All needs attended to promptly t/o the shift. Meds given as needed and per MD's order. Will endorse to day shift RN. Continue to monitor.
[2017-07-30] MEDS: LEVOTHYROXINE SODIUM 125 MCG TABLET PO SCH (06:11)
[2017-07-30 07:58] LABS: BASOPHILS % (AUTO) 0.2 % (0.0-2.0); HEMATOCRIT 31.4 % (31.2-41.9); HEMOGLOBIN 10.8 g/dL (10.9-14.3); LYMPHOCYTES # (AUTO) 1.1 K/uL (20.0-40.0); LYMPHOCYTES % (AUTO) 10.8 % (20.5-51.5); MEAN CORPUSCULAR HEMOGLOBIN 29.4 uug (24.7-32.8); MEAN CORPUSCULAR HGB CONC 34 g/dL (32.3-35.6); MEAN CORPUSCULAR VOLUME 85.3 fL (75.5-95.3); MONOCYTES # (AUTO) 0.7 K/uL (2.0-10.0); MONOCYTES % (AUTO) 6.9 % (0.0-11.0); NEUTROPHILS # (AUTO) 8.4 K/uL (1.8-8.9); NEUTROPHILS % (AUTO) 82.1 % (38.5-71.5); PLATELET COUNT (AUTO) 292 K/uL (179-408); RED BLOOD CELL COUNT(AUTO) 3.68 MIL/uL (3.63-4.92); WHITE BLOOD COUNT (AUTO) 10.2 K/uL (3.8-11.8)
[2017-07-30] MEDS: GABAPENTIN 300 MG CAPSULE PO SCH (08:13)
[2017-07-30] MEDS: CYANOCOBALAMIN 1,000 MCG TABLET PO SCH (08:13)
[2017-07-30] MEDS: VERAPAMIL SR 180 MG TABLET.SA PO SCH (08:13)
[2017-07-30] MEDS: METOPROLOL TARTRATE 50 MG TABLET PO SCH ×2 (08:14→20:31)
[2017-07-30] MEDS: MONTELUKAST SODIUM 10 MG TABLET PO SCH (08:14)
[2017-07-30] MEDS: OMEGA-3 FATTY ACIDS/FISH OIL CAPSULE PO SCH (08:14)
[2017-07-30] MEDS: CLONIDINE HCL 0.1 MG TABLET PO SCH ×2 (08:14→17:31)
[2017-07-30] MEDS: FENOFIBRATE NANOCRYSTALLIZED 145 MG TABLET PO SCH (08:14)
[2017-07-30] MEDS: methylPREDNISolone SOD SUCC 40 MG/ML VIAL IV SCH ×2 (08:15→20:33)
[2017-07-30] MEDS: HEPARIN SODIUM,PORCINE 5,000 UNITS/ML VIAL SQ SCH ×2 (08:18→20:38)
[2017-07-30 08:19] LABS: ALANINE AMINOTRANSFERASE 32 U/L (14-59); ALKALINE PHOSPHATASE 32 U/L (50-136); ASPARTATE AMINOTRANSFERASE 22 U/L (15-37); BILIRUBIN,TOTAL 0.3 mg/dL (0.2-1.0); CARBON DIOXIDE 22 mmol/L (21-32); CHLORIDE 101 mmol/L (98-107); CREATININE 1.8 mg/dL (0.6-1.3); GLUCOSE 115 mg/dL (74-106); MAGNESIUM 2.3 mg/dL (1.8-2.4); PHOSPHOROUS 2.9 mg/dL (2.5-4.9); POTASSIUM 5.5 mmol/L (3.5-5.1); TOTAL PROTEIN, SERUM 7.2 g/dL (6.4-8.2); UREA NITROGEN, BLOOD 51 mg/dL (7-18)
[2017-07-30] MEDS: FLUTICASONE/VILANTEROL 1 EACH BLST.W.DEV INH SCH (09:38)
[2017-07-30] MEDS: ARIPIPRAZOLE 5 MG TABLET PO SCH (09:38)
[2017-07-30] MEDS: diphenhydrAMINE 50 MG/1 ML VIAL IV PRN ×2 (09:41→20:41)
[2017-07-30] MEDS ORDERED: SODIUM POLYSTYRENE SULFONATE 15 G/60 ML LIQUID UDC PO ONE (10:00)
[2017-07-30 10:58] VITALS: BP 177/102
[2017-07-30] MEDS: IV NS 1000 ML 1,000 ML IV PRN (11:03)
[2017-07-30] MEDS: CEFTRIAXONE 1 G in IV DEXTROSE 5% 50 ML IV SCH (11:34)
--- NOTE | 2017-07-30 11:37 | NUR ---
pt seen on rounding. pt continues to have elevated blood pressure. pt given meds whole. pt tolerates room air. pt continues to have non productive cough. pt continues to seek attention. behavioral health care coordinator on the phone to get an update. behavioral health care coordinator verbalizes plan of care. pt has history of drug seeking. pt not given ativan as ordered. pt had a large bowel movement. pt ordered to have kayeelate for reduce increased potassium. pt on fluids 100cc/ml . pt iv site intact. will continue to monitor.
[2017-07-30 13:06] LABS: A/G RATIO 1.3 (0.7-1.7); ALBUMIN 3.7 g/dL (2.9-4.4); ALPHA-1-GLOBULIN 0.2 g/dL (0.0-0.4); ALPHA-2-GLOBULIN 1.2 g/dL (0.4-1.0); GAMMA GLOBULIN 0.5 g/dL (0.4-1.8); GLOBULIN, TOTAL 2.9 g/dL (2.2-3.9); M-SPIKE Not Observed g/dL (Not Observed)
[2017-07-30] MEDS: AZITHROMYCIN IV 500 MG in IV DEXTROSE 5% 250 ML IV SCH (13:19)
[2017-07-30 13:53] VITALS: BP 147/93
[2017-07-30] MEDS: METHOCARBAMOL 500 MG TABLET PO PRN ×2 (18:25→20:28)
--- NOTE | 2017-07-30 18:51 | NUR ---
pt recommended to have psych consilt and have projected discharge tomorrow. pt recommended to have psych consult. pt continues to have elevated blood pressure but baseline at 140s, pt given muscle relaxant cough medicine and benadryl prn. pt continiously asks for nurses. pt had liquid diarrhea. md aware. pt has improved since admission. pt had reduced edema on the legs. pt continues to have non productive cough. pt continues to have headache interminently. pt continues to have iv line intact. will endorse to power and recovery shift engineer nurse.
[2017-07-30] MEDS: MIRTAZAPINE 15 MG TABLET PO SCH (20:28)
[2017-07-30] MEDS: ATORVASTATIN 40 MG TABLET PO SCH (20:28)
[2017-07-30 20:38] VITALS: BP 154/70
[2017-07-31] MEDS: ALBUTEROL SULFATE 2.5 MG/3 ML NEBU IH SCH ×6 (03:30→22:58)
--- NOTE | 2017-07-31 04:18 | NUR ---
received patient in bed aaox4. alex needy. constantly complaining of pain and having cough. medicated with robaxin, benadryl and robitussin. still patient not satisfied.patient too emotional and non compliant. gets oob x2 without calling nurse. bed alarm on. ambulates to the BR. voiding and large amount of BM noted this shift. vital signs taken and recorded. BP 154/70 BP meds given. IVF's infusing well. needs attended. tolerated po meds well. will monitor patient.
[2017-07-31] MEDS: LEVOTHYROXINE SODIUM 125 MCG TABLET PO SCH (06:12)
[2017-07-31] MEDS: IV NS 1000 ML 1,000 ML IV PRN (06:24)
[2017-07-31 08:20] LABS: BASOPHILS % (AUTO) 0.2 % (0.0-2.0); HEMATOCRIT 34.4 % (31.2-41.9); HEMOGLOBIN 11.6 g/dL (10.9-14.3); LYMPHOCYTES # (AUTO) 1.2 K/uL (20.0-40.0); MEAN CORPUSCULAR HEMOGLOBIN 28.9 uug (24.7-32.8); MEAN CORPUSCULAR HGB CONC 34 g/dL (32.3-35.6); MEAN CORPUSCULAR VOLUME 85.9 fL (75.5-95.3); MONOCYTES # (AUTO) 0.7 K/uL (2.0-10.0); MONOCYTES % (AUTO) 6.8 % (0.0-11.0); NEUTROPHILS # (AUTO) 7.9 K/uL (1.8-8.9); PLATELET COUNT (AUTO) 319 K/uL (179-408); RED BLOOD CELL COUNT(AUTO) 4.01 MIL/uL (3.63-4.92); WHITE BLOOD COUNT (AUTO) 9.7 K/uL (3.8-11.8)
[2017-07-31 10:01] LABS: ALANINE AMINOTRANSFERASE 28 U/L (14-59); ALKALINE PHOSPHATASE 37 U/L (50-136); ASPARTATE AMINOTRANSFERASE 21 U/L (15-37); BILIRUBIN,TOTAL 0.4 mg/dL (0.2-1.0); CARBON DIOXIDE 18 mmol/L (21-32); CHLORIDE 104 mmol/L (98-107); CREATININE 1.5 mg/dL (0.6-1.3); GLUCOSE 115 mg/dL (74-106); MAGNESIUM 2.3 mg/dL (1.8-2.4); PHOSPHOROUS 3.1 mg/dL (2.5-4.9); POTASSIUM 4.6 mmol/L (3.5-5.1); TOTAL PROTEIN, SERUM 7.2 g/dL (6.4-8.2); UREA NITROGEN, BLOOD 43 mg/dL (7-18)
[2017-07-31] MEDS: FLUTICASONE/VILANTEROL 1 EACH BLST.W.DEV INH SCH (10:13)
[2017-07-31] MEDS: OMEGA-3 FATTY ACIDS/FISH OIL CAPSULE PO SCH (10:13)
[2017-07-31] MEDS: FENOFIBRATE NANOCRYSTALLIZED 145 MG TABLET PO SCH (10:14)
[2017-07-31] MEDS: LORATADINE 10 MG TABLET PO SCH (10:14)
[2017-07-31] MEDS: CLONIDINE HCL 0.1 MG TABLET PO SCH ×2 (10:15→17:03)
[2017-07-31] MEDS: CYANOCOBALAMIN 1,000 MCG TABLET PO SCH (10:15)
[2017-07-31] MEDS: VERAPAMIL SR 180 MG TABLET.SA PO SCH (10:16)
[2017-07-31] MEDS: METOPROLOL TARTRATE 50 MG TABLET PO SCH ×2 (10:17→20:46)
[2017-07-31] MEDS: GABAPENTIN 300 MG CAPSULE PO SCH (10:17)
[2017-07-31] MEDS: MONTELUKAST SODIUM 10 MG TABLET PO SCH (10:17)
[2017-07-31] MEDS: ARIPIPRAZOLE 5 MG TABLET PO SCH ×2 (10:18→17:04)
[2017-07-31 10:22] VITALS: BP 150/86
[2017-07-31 10:54] LABS: BAND % (MANUAL) 2 % (0-10); LYMPHOCYTES % (MANUAL) 12 % (20-40); METAMYELOCYTES % 1 % (0-1); MONOCYTES % (MANUAL) 7 % (2-10); MYELOCYTES % 2 % (0-0); NEUTROPHILS % (MANUAL) 76 % (42-75)
[2017-07-31] MEDS: methylPREDNISolone SOD SUCC 40 MG/ML VIAL IV SCH ×2 (11:36→20:47)
[2017-07-31] MEDS: diphenhydrAMINE 50 MG/1 ML VIAL IV PRN ×2 (11:40→20:55)
[2017-07-31] MEDS: HEPARIN SODIUM,PORCINE 5,000 UNITS/ML VIAL SQ SCH ×2 (11:44→20:59)
[2017-07-31] MEDS: CEFTRIAXONE 1 G in IV DEXTROSE 5% 50 ML IV SCH (11:52)
[2017-07-31 14:46] VITALS: BP 161/95
[2017-07-31] MEDS: METHOCARBAMOL 500 MG TABLET PO PRN ×2 (14:48→20:45)
[2017-07-31] MEDS: GUAIFENESIN/CODEINE 5 ML LIQUID UDC PO PRN ×2 (14:48→20:46)
[2017-07-31] MEDS: AZITHROMYCIN IV 500 MG in IV DEXTROSE 5% 250 ML IV SCH (15:05)
--- NOTE | 2017-07-31 17:31 | NUR ---
Pt seen by MD, new orders received to increase Abilify from once daily to BID. Plan of care discussed. Pt v/s taken to be 150/88, 86, 96%, and 98.7 temp. Pt voided x2 and BM x1. Pt reports slight headache, will follow up once medications have taken effect. All comfort and safety needs met at this time. Call light within reach.
--- NOTE | 2017-07-31 18:45 | NUR ---
Pt finished dinner and assisted to bathroom with walker, x1 assist. voiding x1. Pt resting comfortably in bed. Call light placed within reach, bed alarm on, and Pt reminded to utilize call light to address any further needs. All safety and comfort measures met at this time. Will continue to monitor Pt and endorse to on coming front desk monitor.
--- NOTE | 2017-07-31 20:06 | NUR ---
resting in bed at beginning of the shift. ambulates to the BR with walker with supervision. voiding well. BM noted this shift. patient very anxious. reassured patient that everything will be alright. needs attended. denies any pain at this time. will monitor patient. call auguste within reach. bed alarm on. no acute distress noted.
[2017-07-31 20:28] VITALS: BP 136/79
[2017-07-31] MEDS: ATORVASTATIN 40 MG TABLET PO SCH (20:44)
[2017-07-31] MEDS: MIRTAZAPINE 15 MG TABLET PO SCH (20:45)
[2017-07-31] MEDS: ACETAMINOPHEN 325 MG TABLET PO PRN (20:46)
[2017-08-01] MEDS: ALBUTEROL SULFATE 2.5 MG/3 ML NEBU NEB PRN ×2 (01:19→05:24)
[2017-08-01] MEDS: ALBUTEROL SULFATE 2.5 MG/3 ML NEBU IH SCH ×6 (02:45→22:45)
--- NOTE | 2017-08-01 04:36 | NUR ---
patient sleeping at short intervals. sleeping on & off. was very needy. attended to needs. IV heplock got infiltrated. new #20 heplock inserted as ordered. IV restarted. ambulates to the BR with supervision. Voiding well. will monitor patient. no acute distress noted.
[2017-08-01] MEDS: GUAIFENESIN/CODEINE 5 ML LIQUID UDC PO PRN ×2 (05:10→21:01)
--- NOTE | 2017-08-01 05:16 | NUR ---
patient called 911 a couple of times telling that she needs breathing treatments and let her aware that the respiratory therapist aware. patient very edgy and anxious. Reassured patient that everything will be taken cared for. will monitor patient. patient also very paranoid was on the phone all night long.Had periods of non- productive cough, robitussin given as ordered. all needs attended.
[2017-08-01] MEDS: LEVOTHYROXINE SODIUM 125 MCG TABLET PO SCH (06:12)
[2017-08-01 07:09] VITALS: BP 168/72
[2017-08-01] MEDS: HEPARIN SODIUM,PORCINE 5,000 UNITS/ML VIAL SQ SCH ×2 (08:10→20:58)
[2017-08-01] MEDS: GABAPENTIN 300 MG CAPSULE PO SCH (08:11)
[2017-08-01] MEDS: OMEGA-3 FATTY ACIDS/FISH OIL CAPSULE PO SCH (08:11)
[2017-08-01] MEDS: MONTELUKAST SODIUM 10 MG TABLET PO SCH (08:12)
[2017-08-01] MEDS: CLONIDINE HCL 0.1 MG TABLET PO SCH ×2 (08:12→16:17)
[2017-08-01] MEDS: FENOFIBRATE NANOCRYSTALLIZED 145 MG TABLET PO SCH (08:12)
[2017-08-01] MEDS: VERAPAMIL SR 180 MG TABLET.SA PO SCH (08:12)
[2017-08-01] MEDS: METOPROLOL TARTRATE 50 MG TABLET PO SCH ×2 (08:12→20:57)
[2017-08-01] MEDS: CYANOCOBALAMIN 1,000 MCG TABLET PO SCH (08:13)
[2017-08-01] MEDS: methylPREDNISolone SOD SUCC 40 MG/ML VIAL IV SCH (08:18)
[2017-08-01] MEDS: FLUTICASONE/VILANTEROL 1 EACH BLST.W.DEV INH SCH (08:20)
[2017-08-01] MEDS: ARIPIPRAZOLE 5 MG TABLET PO SCH ×2 (09:00→16:17)
--- NOTE | 2017-08-01 09:25 | NUR ---
pt seen on rounding. pt continues to show anxiety. pt continues to ask for help pt seems to be in distress. blood pressure elevated. pt tolerates room air and shows non productive cough. o2 sat within normal limits. pt given meds as prescribed. pt has a new iv line started from previous shift. no infiltration noted. pt instructed to find ways to calm herself down. pt has increased frequency of abilify. will continue to monitor.
[2017-08-01] MEDS: CEFTRIAXONE 1 G in IV DEXTROSE 5% 50 ML IV SCH (12:25)
--- NOTE | 2017-08-01 18:46 | NUR ---
pt assessed by crisis team for admission to [facility]. pt is on [id number]. original copy being sent to [facility]. all discharge instructions given to pt. pt agrees to plan of care. pt continues to be anxious. all home meds taken from pharmacy and will be sent to [facility]. all iv medications discontinued. tms form sent. belongings list signed. advocate agreed to plan of care.
--- NOTE | 2017-08-01 19:11 | NUR ---
pt seen by chavez by crisis team. pt will be on 515. pt agreed to plan of care. report given to jhoan from [facility] psych unit.
--- NOTE | 2017-08-01 19:52 | NUR ---
received resting in bed. very anxious. aware of patient being discharge to [facility]. ambulates to the BR with assistance. Voiding well. BM noted this shift. Awaiting for ambulance to be pickup. Will monitor patient.VSS.
[2017-08-01] MEDS: MIRTAZAPINE 15 MG TABLET PO SCH (20:56)
[2017-08-01 20:57] VITALS: BP 164/81
[2017-08-01] MEDS: ATORVASTATIN 40 MG TABLET PO SCH (20:57)
--- NOTE | 2017-08-01 21:19 | NUR ---
received a call from ambulance that her pickup time changed to 2200 patient aware. 2100 meds given per order. awaiting fo patient to be transfer to [facility].
[2017-08-02] MEDS: ALBUTEROL SULFATE 2.5 MG/3 ML NEBU IH SCH (03:00)
== END 2017-08-01 21:45 | DRG 193 ==
LOC: ER 18:21 → TRANSITION 07-28 10:20 → TELE 07-28 17:13 → MED 07-29 21:22 → MEDSURG1 07-29 22:59
PROVIDERS: ADMIT Internal Medicine Nephrology; ATTEND Internal Medicine
DX: J15.9 Unspecified bacterial pneumonia (principal); N17.0 Acute kidney failure with tubular necrosis; J96.90 Respiratory failure, unspecified, unspecified whether with hypoxia or hypercapnia; J44.0 Chronic obstructive pulmonary disease with (acute) lower respiratory infection; J44.1 Chronic obstructive pulmonary disease with (acute) exacerbation; E78.5 Hyperlipidemia, unspecified; K21.9 Gastro-esophageal reflux disease without esophagitis; M79.7 Fibromyalgia; E03.9 Hypothyroidism, unspecified; Z79.51 Long term (current) use of inhaled steroids; Z79.899 Other long term (current) drug therapy; G43.909 Migraine, unspecified, not intractable, without status migrainosus; E66.9 Obesity, unspecified; Z68.26 Body mass index [BMI] 26.0-26.9, adult; E87.5 Hyperkalemia; F41.9 Anxiety disorder, unspecified; I12.9 Hypertensive chronic kidney disease with stage 1 through stage 4 chronic kidney disease, or unspecified chronic kidney disease; N18.9 Chronic kidney disease, unspecified; Z90.710 Acquired absence of both cervix and uterus; Z79.83 Long term (current) use of bisphosphonates; D64.9 Anemia, unspecified
CPT/HCPCS: 36415; 36600; 70030-TC; 71045; 76770; 83605; 83735; 83970; 84100; 84155; 84156; 84165; 84300; 85025; 87040; 87400; 93005; 94640; A4663; J0456; J0696; J1200; J1644; J1956; J2060; J2270; J2405; J2543; J2920; J2930; J3490; J3590; J7030; J7060